=== PATIENT | female | born 1990 | race Hispanic/Latino ===

== ENCOUNTER 2017-03-18 13:57 | Emergency (ER) | payer OTHER ==
[~2017-03-18] VITALS: Ht 154.9 cm; Wt 54.4 kg
--- NOTE | 2017-03-18 17:13 | ED INFLUENZA/URI COMPLAINT ---
History of Present Illness General Chief Complaint: Upper Respiratory Sx/Fever Stated Complaint: FEVERS,BODY ACHES Source: patient, old records Exam Limitations: no limitations Vital Signs & Intake/Output Vital Signs & Intake/Output Vital Signs Date Time Temp Pulse Resp B/P B/P Pulse O2 O2 Flow FiO2 Mean Ox Delivery Rate 03/18 1721 99 Room Air 03/18 1721 97.9 105 22 127/90 99 Room Air 03/18 1411 96.8 98 18 128/89 99 Room Air Room Air ED Intake and Output 03/19 0000 03/18 1200 Intake Total Output Total Balance Patient 54.431 kg Weight Weight Reported by Patient Measurement Method Allergies Uncoded Allergies: SEASONAL ALLERGIES (Intermediate, COUGHING 03/18/17) Reconcile Medications Amoxicillin/Potassium Clav (Augmentin 875-125 Tablet) 875 MG-125 MG TABLET 1 TAB PO BID SINUSITIS Triage Note: TRIAGE: 26 Y/O FEMALE PRESENTS C/O "FLU LIKE SYMPTOMS" X 1 MONTH. AFEBRILE IN TRIAGE Triage Nurses Notes Reviewed? yes : No Patient currently breastfeeds: No HPI: 26F no PMH with 1 month of bilateral sinus pain, sore throat, congestion, left ear pain, and intermittent fevers. Reports thick yellow discharge from nose. Symptoms have been worsening. Has not seen a doctor. Has been taking OTC medications with no relief. Denies headache, neck stiffness, hearing loss, cough, chest pain, SOB, abdominal pain, diarrhea, dysuria. Past History Travel History Traveled to [place] past 21 day No Medical History Any Pertinent Medical History? see below for history Neurological: NONE EENT: NONE Surgical History Surgical History: non-contributory Psychosocial History What is your primary language Ukrainian Tobacco Use: Never used ETOH Use: occasional use Illicit Drug Use: marijuana Family History Hx Contributory? No Review of Systems Review of Systems Constitutional: Reports: no symptoms. EENTM: Reports: no symptoms. Respiratory: Reports: no symptoms. Cardiovascular: Reports: no symptoms. GI: Reports: no symptoms. Genitourinary: Reports: no symptoms. Musculoskeletal: Reports: no symptoms. Skin: Reports: no symptoms. Neurological/Psychological: Reports: no symptoms. Hematologic/Endocrine: Reports: no symptoms. Immunologic/Allergic: Reports: no symptoms. All Other Systems: Reviewed and Negative Physical Exam Physical Exam General Appearance: well developed/nourished, no apparent distress Head: atraumatic, normal appearance Eyes: Bilateral: normal appearance. Ears, Nose, Throat: pharynx normal, left ear canal erythema Neck: normal inspection, supple, full range of motion, lymphadenopathy (L) Respiratory: normal breath sounds, no respiratory distress Cardiovascular: regular rate/rhythm Gastrointestinal: soft, non-tender Back: normal inspection, normal range of motion Extremities: normal inspection, normal range of motion Neurologic/Psych: awake, alert, oriented x 3, normal mood/affect Skin: intact, normal color, warm/dry Core Measures Sepsis Present: No Sepsis Focused Exam Completed? No Progress Differential Diagnosis: influenza, meningitis, neutropenia, otitis, pneumonia, pharyngitis, sinusitis Plan of Care: Orders Procedure Date/time Status RAPID VIRAL INFLUENZA A 03/18 1411 Complete Microbiology 03/18 1415 NASOPHARYN: Influenza Virus A & B Rapid Smear - COMP Influenza negative. Given 1 month of continuous symptoms with fevers and worsening of nasal discharge, will give Augmentin for 1 week and refer to ENT if no improvement. Initial ED EKG: none Departure Departure Disposition: HOME OR SELF CARE Condition: Stable Clinical Impression Primary Impression: Acute sinusitis Referrals: Patient Has No Primary Care Dr (PCP/Family) Additional Instructions: Follow up with your PCP. If no improvement in symptoms, follow up with ENT referral. IF you notice neck stiffness, fever, confusion, sensitivity to light, worsening of your symptoms or any new symptoms, return to emergency room. Departure Forms: Customer Survey General Discharge Information Prescriptions: Current Visit Scripts Amoxicillin/Potassium Clav (Augmentin 875-125 Tablet) 1 TAB PO BID #14 TAB
[2017-03-18 17:21] VITALS: BP 127/90
[2017-03-18] MEDS ORDERED: AUGMENTIN 875-1 EACH PO (17:45)
== END 2017-03-18 18:09 ==
LOC: ERH 13:57
DX: J01.90 Acute sinusitis, unspecified (principal)
CPT/HCPCS: 87804; 87804-59